=== PATIENT | female | born 1995 | race Two or more races ===

== ENCOUNTER 2025-06-26 17:17 | Observation (INO) | payer BC, SELFPAY ==
[2025-06-26] VITALS (13 sets, daily range): BP systolic 120; BP diastolic 74; PULSE 90–107; RESP 20–100; TEMP 36.8; O2SAT 93–100; BMI 37.0
[2025-06-26 18:03] LABS: Collection Type, Urine Clean Catch
[2025-06-26 18:11] LABS: Bacteria,Urine 3+; Bilirubin,Urine Negative (Negative); Blood,Urine 3+ (Negative); Clarity,Urine Turbid (Clear/Hazy); Color,Urine Colorless (Lt Yel-Yel); Glucose, Urine Negative (Negative); Hyaline Casts,Urine < 1 /hpf (0-1); Ketones,Urine Negative (Negative); Leukocyte Esterase,Urine Negative (Negative); Nitrite,Urine Negative (Negative); PH,Urine 7.0 (5.0-7.0); Protein,Urine Negative (Neg - Trace); RBC,Urine 88 /hpf (0-3); Specific Gravity,Urine 1.006 (1.001-1.035); Squamous Epithelial Cell,Urine 9 /hpf (0-5); Urobilinogen,Urine Negative mg/dL (0.0-1.0); WBC,Urine 23 /hpf (0-5)
[2025-06-26] MEDS: cefTRIAXone 1,000 MG, LIDOCAINE 1% 20 ML 2.1 ML IM (18:29)
== END 2025-06-26 18:39 | disposition home or self-care (01) ==
PROVIDERS: Admitting Provider Specialist; Visit Provider Specialist
DX: O26.892 Other specified pregnancy related conditions, second trimester (principal); Z3A.22 22 weeks gestation of pregnancy; R31.9 Hematuria, unspecified
CPT/HCPCS: 59899; 81001; 87086; 96372; J0696; J3490

== ENCOUNTER 2025-07-28 16:43 | Observation (INO) | payer BC, SELFPAY ==
[2025-07-28] VITALS (56 sets, daily range): BP systolic 117–131; BP diastolic 68–88; PULSE 88–117; RESP 18–99; TEMP 36.7; O2SAT 90–100; BMI 38.8
[2025-07-28 17:50] LABS: Collection Type, Urine Clean Catch
[2025-07-28 18:20] LABS: Amorphous Crystals,Urine Present (Absent); Bacteria,Urine Rare; Bilirubin,Urine Negative (Negative); Blood,Urine 3+ (Negative); Clarity,Urine Clear (Clear/Hazy); Color,Urine Colorless (Lt Yel-Yel); Culture Indicated,Urine Not Indicated; Glucose, Urine Negative (Negative); Ketones,Urine Negative (Negative); Leukocyte Esterase,Urine Negative (Negative); Nitrite,Urine Negative (Negative); PH,Urine 6.5 (5.0-7.0); Protein,Urine Negative (Neg - Trace); RBC,Urine 352 /hpf (0-3); Specific Gravity,Urine 1.010 (1.001-1.035); Squamous Epithelial Cell,Urine < 1 /hpf (0-5); Urobilinogen,Urine Negative mg/dL (0.0-1.0); WBC,Urine 4 /hpf (0-5)
[2025-07-28] MEDS: cefTRIAXone 1,000 MG, LIDOCAINE 1% 20 ML 2.1 ML IM (18:53)
[2025-07-28 18:54] LABS: FFN Specimen Descripton Clr Colrless Aqueous; Fetal Fibronectin Negative (Negative)
--- NOTE | 2025-07-28 19:24 | XR_ITS ---
Examination: Retroperitoneal ultrasound, complete Technique: Multiple high resolution grayscale images of the retroperitoneum obtained, including kidneys and bladder. Exam date and time: July 28, 2025, 0814 hours INDICATIONS: Low back pain beginning 1 month ago flank pain FINDINGS: Right kidney 10.3 cm renal cortex 1.8 cm Left kidney 11.6 cm renal cortex 2.4 cm No renal calculi, no hydronephrosis No bladder mass or bladder calculi Bladder prevoid volume 146 cc IMPRESSION: No renal calculi or hydronephrosis
[2025-07-28] MEDS: RINGERS LACTATED 1000 ML 1,000 ML 999 ML IV (19:50)
[2025-07-28] MEDS: RINGERS LACTATED 1000 ML 1,000 ML 125 ML IV (20:40)
[2025-07-28] MEDS: TAMSULOSIN HCL 0.4 MG CAPSULE PO ×3 (20:51→20:58)
== END 2025-07-28 22:15 | disposition home or self-care (01) ==
PROVIDERS: Admitting Provider Specialist; Visit Provider Specialist
DX: O26.892 Other specified pregnancy related conditions, second trimester (principal); Z3A.26 26 weeks gestation of pregnancy; R10.30 Lower abdominal pain, unspecified; M54.50 Low back pain, unspecified; R31.9 Hematuria, unspecified
CPT/HCPCS: 59899; 76770; 81001; 82731; 96372; J0696; J3490; J7120; A9270

== ENCOUNTER 2025-09-04 19:04 | Observation (INO) | payer BC, SELFPAY ==
[2025-09-04] VITALS (11 sets, daily range): BP systolic 121; BP diastolic 76; PULSE 98–115; RESP 17–100; TEMP 36.8; O2SAT 97–99; BMI 38.0
[2025-09-04 19:48] LABS: Collection Type, Urine Clean Catch; Squamous Epithelial Cell,Urine 0 /hpf (0-5)
[2025-09-04 19:52] LABS: Bacteria,Urine Rare; Bilirubin,Urine Negative (Negative); Blood,Urine 3+ (Negative); Clarity,Urine Clear (Clear/Hazy); Color,Urine Colorless (Lt Yel-Yel); Glucose, Urine Negative (Negative); Ketones,Urine Negative (Negative); Leukocyte Esterase,Urine Negative (Negative); Nitrite,Urine Negative (Negative); PH,Urine 6.0 (5.0-7.0); Protein,Urine Negative (Neg - Trace); RBC,Urine 325 /hpf (0-3); Specific Gravity,Urine 1.008 (1.001-1.035); Urobilinogen,Urine Negative mg/dL (0.0-1.0); WBC,Urine 15 /hpf (0-5)
[2025-09-04 19:54] LABS: Culture Indicated,Urine Yes
--- NOTE | 2025-09-04 20:05 | ESPR_ITS ---
Documentation for date of: 09/04/25 OB Labor Progress Note Pelvic Exam Amniotic membrane status: Intact Contractions Monitor mode: External Contraction frequency: none Status status: Category l Assessment and Plan Comments: Triage Note Karen is a 29yo with SIUP at 32+wk presenting to L&D for painless blood in urine. She denies pain, frequency or urge of urination. No fevers/chills. No back pain. She notes no painful/regular ctx, no vaginal bleeding, no loss of fluid. Normal movement. Of note, she had similar episode 07/28. She had renal ultrasound performed which was normal, UA showed crystals (no ucx indicated), she was treated with Rocephin and instructed to return if it ever occurred again. PMhx/PNC significant for: -Care with Dr. Clark -Hx of section -Current BMI 38 -Palpations, awaiting cardiology appt ROS negative other than what was described above. Vitals wnl, afebrile General: well developed, well nourished, no acute distress, conversant Cardiac: normal heart rate Lungs: breathing without distress Abdomen: soft, gravid, non-tender, no rebound or guarding Extremities: no edema BLE NST: Reactive, +accels, no decels, mod gabriella [place]: no regular ctx pattern Labs: Urinalysis shows 325 RBC, negative nitrite, negative LE, 15 WBC, rare bacteria Radiology: Examination: Retroperitoneal ultrasound, complete Technique: Multiple high resolution grayscale images of the retroperitoneum obtained, including kidneys and bladder. Exam date and time: July 28, 2025, 0814 hours INDICATIONS: Low back pain beginning 1 month ago flank pain FINDINGS: Right kidney 10.3 cm renal cortex 1.8 cm Left kidney 11.6 cm renal cortex 2.4 cm No renal calculi, no hydronephrosis No bladder mass or bladder calculi Bladder prevoid volume 146 cc IMPRESSION: No renal calculi or hydronephrosis Assessment: Karen is a 29yo with SIUP at 32+wk with painless hematuria. 2nd episode. No s/sx of UTI or pyelo. Reassuring assessment. Vitals wnl, benign exam. Plan: -Urine culture reflexed, pending. Patient instructed to discuss result with Chela this week or call L&D after 48hr for result -Follow up at routine OB visit as scheduled -Discussed return precautions including those for sx concerning for pyelonephritis. Jerri Delcid MD
== END 2025-09-04 20:20 | disposition home or self-care (01) ==
PROVIDERS: Admitting Provider Obstetrics & Gynecology; Visit Provider Obstetrics & Gynecology
DX: O26.893 Other specified pregnancy related conditions, third trimester (principal); Z3A.32 32 weeks gestation of pregnancy; R31.9 Hematuria, unspecified
CPT/HCPCS: 59025; 59899; 81001; 87086